=== PATIENT | female | born 1960 | race American Indian/Alaskan Native ===

== ENCOUNTER 2018-09-17 14:09 | Outpatient (CLI) | payer BC ==
--- NOTE | 2018-09-17 16:02 | Mammography Report ---
RIGHT DIGITAL DIAGNOSTIC MAMMOGRAM: 09/17/18 14:09:00 CLINICAL: For clip placement immediately status post ultrasound biopsy at two sites. COMPARISON:07/21/18 FINDINGS: Biopsy clips are identified at 9 o'clock approximately 7 cm from the nipple and at 9 o'clock 3 cm from the nipple IMPRESSION: Concordant clip placement status post ultrasound biopsy at 2 sites. BI-RADS CATEGORY: 4--Suspicious Pathology pending.
--- NOTE | 2018-09-17 16:20 | Ultrasound Report ---
VACUUM ASSISTED ULTRASOUND GUIDED NEEDLE CORE BIOPSY WITH CLIP PLACEMENT RIGHT BREAST : 09/17/18 14:09:00 CLINICAL: Breast lesions at 8 o'clock and 9 o'clock COMPARISON :08/18/18 FINDINGS: The procedure was explained to the patient and informed consent was obtained. Ultrasound demonstrated the previously described lesions. The skin was prepped with Betadine and anesthetized with 1% lidocaine. Needle core biopsy was performed at 8 o'clock 5 cm from the nipple through a small dermatotomy using ultrasound guidance, 2% lidocaine with epinephrine for deep anesthesia and a 14-gauge Achieve biopsy device. Multiple cores were obtained and placed in formalin. A localizer clip was placed at the biopsy site. The skin was prepped with Betadine and anesthetized with 1% lidocaine. Vacuum-assisted needle core biopsy was performed through a small dermatotomy at 9 o'clock 2 cm from the nipple using ultrasound guidance, 2% lidocaine with epinephrine for deep anesthesia and a 10-gauge Mammotome Elite biopsy probe. Multiple cores were obtained and placed in formalin. An 11-gauge Mammostar barbell shape clip was deployed at the biopsy site. Hemostasis was achieved with minimal pressure at both sites and sterile dressings were applied. The patient tolerated the procedure well and there were no apparent complications. A two view mammogram demonstrated concordant clip placement at both sites. The patient left the department in good condition and was given instructions for wound care and follow up. IMPRESSION: Uncomplicated ultrasound guided needle biopsy at 2 sites right breast.
== END 2018-09-17 14:10 | disposition home or self-care (01) ==
LOC: SPVWC 14:09
PROVIDERS: ATTEND Surgery
DX: D24.1 Benign neoplasm of right breast (principal); N60.11 Diffuse cystic mastopathy of right breast; N60.91 Unspecified benign mammary dysplasia of right breast
CPT/HCPCS: 88305; 88341; 88342

== ENCOUNTER 2018-10-12 08:23 | Outpatient (CLI) | payer BC ==
--- NOTE | 2018-10-12 13:09 | Ultrasound Report ---
COMPLETE LEFT BREAST ULTRASOUND HISTORY: Nipple discharge. The patient reports it as brownish or greenish. COMPARISON: 09/17/2018 bilateral mammogram FINDINGS: Complete sonographic evaluation including imaging of the four quadrants and subareolar aspe ct of the left breast was performed. An irregular solid hypoechoic mass with mild shadowing is identi fied at 12:00 2 cm from the nipple. It measures approximately 10 x 8 x 9 mm. A few benign cysts and m oderate retroareolar ductal ectasia with no intraductal mass identified. IMPRESSION A suspicious 10 mm left breast mass at 12:00 2 cm from the nipple. Recommend ultrasound-guided vacuum -assisted biopsy. I discussed the findings and recommendation for biopsy with the patient at the time of the exam. BIRADS 4: Suspicious abnormality. Signer Name: Inderjit Tesfaye MD Signed: 10/12/2018 2:04 PM Workstation Name: [id number]
== END 2018-10-12 08:24 | disposition home or self-care (01) ==
LOC: SPVWC 08:23
PROVIDERS: ATTEND Surgery
DX: N64.52 Nipple discharge (principal)

== ENCOUNTER 2018-10-26 09:15 | Outpatient (CLI) | payer BC ==
--- NOTE | 2018-10-26 13:24 | Ultrasound Report ---
ULTRASOUND-GUIDED VACUUM-ASSISTED NEEDLE CORE BIOPSY LEFT BREAST WITH CLIP PLACEMENT CLINICAL: A suspicious 10 mm irregular mass at 12:00 2 cm from the nipple. COMPARISON: 10/12/2018 FINDINGS: The procedure was explained to the patient and informed consent was obtained. Ultrasound demonstrated the previously identified lesion. A marker breast with a felt tip marker and a timeout was called. The skin was prepped with Chloro-Pre p and anesthetized with 1% lidocaine. Vacuum-assisted needle core biopsy was performed through tiny dermatotomy using ultrasound guidance, 2% lidocaine with epinephrine for deep anesthesia and a 13-gauge Mammotome Elite biopsy device. 9 cor es were obtained and placed in formalin. A HydroMark clip was deployed within the lesion. The patient tolerated the procedure well and there were no apparent convocations. Hemostasis was achi eved with minimal effort and a sterile dressing was applied. A post procedure mammogram demonstrated concordant clip deployment. She left the department in good c ondition and was given instructions for wound care and follow-up. IMPRESSION: Uncomplicated ultrasound guided vacuum assisted needle core biopsy with clip placement le ft breast. Signer Name: Inderjit Tesfaye MD Signed: 10/26/2018 1:20 PM Workstation Name: [id number]
--- NOTE | 2018-10-26 13:29 | Mammography Report ---
LEFT DIGITAL DIAGNOSTIC CLINICAL: For clip placement after ultrasound-guided needle biopsy. COMPARISON: 09/17/2018 FINDINGS: A clip is identified at 12:00 and is adjacent to previously identified relatively large lulu cifications. IMPRESSION: Concordant clip deployment. Signer Name: Inderjit Tesfaye MD Signed: 10/26/2018 1:24 PM Workstation Name: [id number]
== END 2018-10-26 09:16 | disposition home or self-care (01) ==
LOC: SPVWC 09:15
PROVIDERS: ATTEND Surgery
DX: N63.21 Unspecified lump in the left breast, upper outer quadrant (principal); N64.89 Other specified disorders of breast; I89.8 Other specified noninfective disorders of lymphatic vessels and lymph nodes; Z79.899 Other long term (current) drug therapy
CPT/HCPCS: 88305

== ENCOUNTER 2018-11-02 06:27 | Day surgery (SDC) | payer BC, OTHER ==
[~2018-11-02 06:27] MED LIST: ANCEF/STERILE WATER 2 GM/20 ML 2 GM/20 ML SYRINGE IV SCH
--- NOTE | 2018-11-02 07:24 | Anesthesia Day of Surgery ---
Anesthesia Day of Surgery - Day of Surgery Patient Examined: Yes Patient H&P Reviewed: Yes Patient is NPO: Yes
--- NOTE | 2018-11-02 07:24 | Anesthesia Consultation ---
Anesthesia Consult and Med Hx Date of service: 11/02/18 - Airway Anesthetic Teeth Evaluation: Partials ROM Head & Neck: Adequate Mental/Hyoid Distance: Adequate Mallampati Class: Class II Intubation Access Assessment: Good - Pulmonary Exam CTA: Yes - Cardiac Exam Cardiac Exam: RRR - Pre-Operative Health Status ASA Pre-Surgery Classification: ASA3 Proposed Anesthetic Plan: General - Pulmonary Hx Smoking: No Hx Sleep Apnea: Yes (DX SLEEP APNEA , NO CPAP USE.) - Cardiovascular System Hx Hypertension: Yes (X 5 YRS) - Endocrine Hx Non-Insulin Dependent Diabetes: No (Diagnosed as prediabetic not not pn any meds ) - Other Systems Hx Cancer: No
[2018-11-02] MEDS ORDERED: DILAUDID IV PRN (07:25)
[2018-11-02] MEDS ORDERED: ZOFRAN IV PRN (07:25)
[2018-11-02] MEDS ORDERED: ZOFRAN ONE (07:38)
[2018-11-02] MEDS ORDERED: DIPRIVAN 10 MG/ML IV ONE (07:38)
[2018-11-02] MEDS ORDERED: SUBLIMAZE ONE (07:38)
[2018-11-02] MEDS ORDERED: XYLOCAINE 1% 20 mL ONE (07:40)
[2018-11-02] MEDS ORDERED: LACTATED RINGERS 1,000 ML IV SCH (08:00)
[2018-11-02] MEDS ORDERED: NEURONTIN PO NR (08:00)
[2018-11-02] MEDS ORDERED: XYLOCAINE 1% 20 mL INFILTRATI NR (08:02)
[2018-11-02] MEDS ORDERED: MARCAINE 0.25% INFILTRATI ONE ×2 (08:15→09:44)
[2018-11-02] MEDS ORDERED: XYLOCAINE MPF 2% ONE (09:04)
[2018-11-02] MEDS ORDERED: XYLOCAINE 1% 20 mL INFILTRATI ONE (09:44)
[2018-11-02] MEDS ORDERED: NACL 0.9% IR ONE (09:45)
[2018-11-02] MEDS ORDERED: ANTIBIOTIC OINT TP ONE (09:50)
--- NOTE | 2018-11-02 10:02 | Short Stay Summary ---
Short Stay Documentation Date of service: 11/02/18 - History H&P: obtained from office - Allergies and Medications Current Medications: Allergies prednisone Allergy (Verified 10/29/18 18:07) CONFUSION Home Medications Medication Instructions Recorded Confirmed Last Taken Type Telmisartan/Hydrochlorothiazid 1 each PO DAILY 10/29/18 11/02/18 11/01/18 10:00 History [Telmisartan-Hctz 80-25 mg Tab] HYDROcodone/APAP 5-325 [[place] 1 each PO Q6HR PRN #25 tablet 11/02/18 Unknown Rx 5/325] Sulfamethoxazole/Trimethoprim 1 each PO BID #20 tablet 11/02/18 Unknown Rx [Bactrim DS TAB] Active Medications Gabapentin (Neurontin) 300 mg PO PREOP NR Stop: 11/02/18 16:00 Last Admin: 11/02/18 08:30 Dose: 300 mg Documented by: Hydromorphone HCl (Dilaudid) 0.5 mg IV Q10MIN PRN PRN Reason: Pain , Severe (7-10) Stop: 11/02/18 16:00 Cefazolin Sodium (Ancef/Sterile Water 2 Gm/20 Ml) 2 gm in 20 mls @ 80 mls/hr IV PREOP JURGEN; Protocol Stop: 11/02/18 23:00 Lactated Ringer's (Lactated Ringers) 1,000 mls @ 100 mls/hr IV DIRECT JURGEN Last Admin: 11/02/18 08:30 Dose: 100 mls/hr Documented by: Lidocaine (Xylocaine 1% 20 Ml) 20 ml INFILTRATI ONCE NR Stop: 11/02/18 10:00 Ondansetron HCl (Zofran) 4 mg IV ONCE PRN PRN Reason: Nausea And Vomiting Stop: 11/02/18 16:00 - Brief post op/procedure progress note Date of procedure: 11/09/18 Pre-op diagnosis: Right breast papilloma Post-op diagnosis: same Procedure: Right needle localization papilloma excisional biopsy Anesthesia: GETA Findings: Clip and wire present within radiograph specimen Surgeon: ALICE CULP Marketing/Sales Person: CRYSTAL BLAIR Estimated blood loss: minimal Pathology: list (right breast papilloma) Specimen disposition: to lab Condition: stable - Disposition Condition at discharge: Good Disposition: DC-01 TO HOME OR SELFCARE Short Stay Discharge Plan Activity: other (no heavy lifting) Diet: regular Wound: keep clean and dry (may shower in 48 hours; wear breast binder) Follow up with: GEETA MILTON MD [Primary Care Provider] - 7 Days ALICE CULP MD [Staff Physician] - 7 Days Prescriptions: Sulfamethoxazole/Trimethoprim [Bactrim DS TAB] 1 each PO BID #20 tablet HYDROcodone/APAP 5-325 [[place] 5/325] 1 each PO Q6HR PRN #25 tablet PRN Reason: Pain
--- NOTE | 2018-11-02 10:08 | Operative Report ---
Operative Report Operative Report: Operative Report: Date of Service: November 02, 2018 Preoperative diagnosis: Right breast papilloma Postoperative diagnosis: Same Procedure: Right breast papilloma excisional biopsy Anesthesia: General Surgeon: Silvana Fiore M.D. License Registration Examiner: Mony Luke M.D. Findings: Right breast papilloma excisional biopsy with wire and clip present Complications: None Drains: None Estimated blood loss: Minimal Disposition: PACU in good condition Indication for operative procedure: This is a 58-year-old lady with recent abnormal right breast ultrasound. Patient with history of right nipple discharge and recent biopsy findings at the 9:00 position 1 cm from the nipple findings of an intraductal papilloma. Recommendations are for excisional biopsy to rule out malignancy. Patient wished to proceed with the above procedure. The patient was procedure in detail: Radiology placed wire at location of clip placement. The patient was taken to the operating room and was laid supine. General anesthesia was administered. The right breast wire was identified. The right breast was prepped and draped in the normal sterile operative fashion. Timeout was performed. Ultrasound was used to aide in marking the area of incision, clip noted at the 9:00 position 1 cm from the nipple. A breast incision was made around the 8/9:00 position NAC was made with a 15 blade knife with dissection taken down to the subcutaneous tissues. The wire was removed laterally from the skin. The medial flap was then raised and taken down posteriorly followed by raising of the lateral, superior and inferior flaps with dissection taken down posteriorly. The area of concern was then removed posteriorly with the aid of the bovie cautery and the wire was never encountered. The ultrasound was then used with clip noted within specimen. The specimen was marked and then sent to pathology and radiology. The breast cavity area was examined and no suspicious masses or lesions were seen. Radiograph specimen with wire and clip present. Hemostasis was then obtained using the Bovie cautery. The breast cavity was irrigated and suctioned. The deep breast tissues were approximated and closed using interrupted 3-0 Vicryl and skin brought together and closed using a running 4-0 Monocryl followed by skin affix. She was awaken from anesthesia without any complications and then sent to PACU in good condition.
--- NOTE | 2018-11-02 10:22 | Mammography Report ---
RIGHT BREAST NEEDLE LOCALIZATION. History: Papilloma by needle biopsy. Comparison: 09/17/2018 Procedure: The right breast was prepped in sterile fashion and utilizing digital mammographic techniq ue and 1% lidocaine for anesthesia, a 5 cm Wolfe 2 hookwire was placed from a lateral approach to l ocalize a retroareolar biopsy clip. Post needle placement mammographic images show the wire adequatel y localizes the clip. Impression: Successful wire / needle localization right breast Signer Name: Inderjit Tesfaye MD Signed: 11/02/2018 10:18 AM Workstation Name: [id number]
[2018-11-02 11:00] VITALS: BP 148/84
--- NOTE | 2018-11-02 15:25 | Post Anesthesia Evaluation ---
- Post Anesthesia Evaluation Patient Participated: Yes Airway Patent: Yes Stable Respiratory Function: Yes Nausea/Vomiting: No Temp > 96.8F: Yes Pain Manageable: Yes Adequeate Hydration: Yes Anesthesia Complications: No Block Receding Appropriately: Not Applicable Patient on Ventilator: No
--- NOTE | 2018-11-02 15:47 | Mammography Report ---
RIGHT BREAST SPECIMEN RADIOGRAPH HISTORY: Surgical excision of a papilloma diagnosed by needle biopsy. COMPARISON: 09/17/2018 FINDINGS/IMPRESSION: A localizer clip and a hookwire are identified within the specimen. Signer Name: Inderjit Tesfaye MD Signed: 11/02/2018 3:43 PM Workstation Name: [id number]
== END 2018-11-02 06:28 | disposition home or self-care (01) ==
LOC: OR 06:27
PROVIDERS: ATTEND Surgery
DX: D24.1 Benign neoplasm of right breast (principal); I10 Essential (primary) hypertension; E11.9 Type 2 diabetes mellitus without complications; G47.30 Sleep apnea, unspecified; Z90.710 Acquired absence of both cervix and uterus; Z98.890 Other specified postprocedural states; Z79.899 Other long term (current) drug therapy; Z88.8 Allergy status to other drugs, medicaments and biological substances
CPT/HCPCS: 19125; 19281; 36415; 76098; 78800; 82962; 84132; 88307; 88341; 88342; A9541; J0690; J2405; J2704; J3010; J7120